=== PATIENT | male | born 2005 | race American Indian/Alaskan Native ===

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

== ENCOUNTER 2025-05-14 14:57 | Emergency (ER) | payer OTHER ==
[~2025-05-14] VITALS: Ht 177.8 cm; Wt 74.9 kg
[2025-05-14 15:13] LABS: BASOPHILS 0.8 % (0.2-1.2); EOSINOPHILS 2.2 % (0.8-7.0); LYMPHOCYTES 24.2 % (21.8-53.1); MCH 28.4 PG (25.7-32.2); MCHC 33.8 g/dL (32.3-36.5); MCV 83.9 fL (79.0-92.2); MONOCYTES 7.0 % (5.3-12.2); NEUTROPHILS 65.5 % (34.0-67.9); RBC 4.90 M/uL (4.63-6.08)
[2025-05-14] MEDS ORDERED: HYDROmorphone HCL 1 MG/ML SYR IV PRN (15:15)
[2025-05-14 15:29] LABS: ALCOHOL, MEDICAL <3 ng/dL (<3); ALT (SGPT) 42 U/L (14-59); AST (SGOT) 43 U/L (15-37); GLOMERULAR FILTRATION RATE,EST 118 mL/min (>60); PROTEIN, TOTAL 7.8 g/dL (6.4-8.2); UREA NITROGEN 12 mg/dL (7-18)
[2025-05-14 15:50] LABS: ABO B; ANTIBODY SCREEN NEGATIVE; RH POSITIVE
[2025-05-14] MEDS ORDERED: SODIUM CHLORIDE 0.9% 1,000 ML IV PRN (16:45)
[2025-05-14] MEDS ORDERED: ACETAMINOPHEN 500 MG TAB PO ONE (16:45)
[2025-05-14 17:55] VITALS: BP 133/84
== END 2025-05-14 17:34 | disposition short-term general hospital (02) ==
LOC: ED 14:57
PROVIDERS: Emergency Medicine
DX: R10.30 Lower abdominal pain, unspecified (principal); M54.2 Cervicalgia; M54.9 Dorsalgia, unspecified
CPT/HCPCS: 70450; 71260; 72125; 74177; 80053; 85025; 86850; 86900; 86901; 99285-25; A9270; G0480; J7030; Q9967